=== PATIENT | male | born 1980 | race Caucasian/White ===

== ENCOUNTER → 2024-04-11 15:10 | Outpatient (REF) | payer OTHER, SELFPAY | LOC: RAD 15:10 | PROVIDERS: ATTENDING PHYSICIAN Nurse Practitioner Family | DX: R10.32 Left lower quadrant pain (principal) | CPT/HCPCS: 74177; Q9967 ==

== ENCOUNTER → 2024-04-29 07:09 | Outpatient (REF) | payer OTHER, SELFPAY | LOC: HWRAD 07:09 | PROVIDERS: ATTENDING PHYSICIAN Nurse Practitioner Family | DX: K82.8 Other specified diseases of gallbladder (principal) | CPT/HCPCS: 76700 ==

== ENCOUNTER 2024-08-26 06:21 | Day surgery (SDC) | payer OTHER, SELFPAY | END 2024-08-26 10:25 | disposition home or self-care (01) | LOC: GI 06:21 | PROVIDERS: ATTENDING PHYSICIAN Student in an Organized Health Care Education/Training Program | DX: Z12.11 Encounter for screening for malignant neoplasm of colon (principal); D12.3 Benign neoplasm of transverse colon; K63.5 Polyp of colon; K22.89 Other specified disease of esophagus; R10.12 Left upper quadrant pain; Z87.19 Personal history of other diseases of the digestive system | CPT/HCPCS: 45385; 45380; 43239; 88305; 88342 ==